=== PATIENT | female | born 1985 | race Caucasian/White ===

== ENCOUNTER 2017-01-02 05:40 | Inpatient (IN) | payer OTHER ==
[~2017-01-02] VITALS: Ht 162.6 cm; Wt 92.5 kg
[2017-01-02] MEDS ORDERED: PREN1TAB80 PO (06:09)
[2017-01-02] MEDS ORDERED: RINGERS SOLUTION,LACTATED 1,000 ML IV PRN (06:29)
[2017-01-02] MEDS ORDERED: OXYTOCIN 30 UNITS/LACT RINGERS 500 ML IV ONE (06:29)
[2017-01-02] MEDS ORDERED: FentaNYL CITRATE-PF 100 MCG/2 ML VIAL IVP PRN (06:30)
[2017-01-02] MEDS ORDERED: METOCLOPRAMIDE HCL 5 MG/ML 2 ML VIAL IVP PRN (06:30)
[2017-01-02] MEDS ORDERED: CITRIC ACID/SODIUM CITRATE 30 ML SOLUTION UDCUP PO PRN (06:30)
[2017-01-02] MEDS ORDERED: MAGNESIUM SULFATE 500 ML IV SCH (06:37)
[2017-01-02] MEDS ORDERED: AZITHROMYCIN 500 MG/NS 250 ML IV ONE (06:45)
[2017-01-02] MEDS ORDERED: MAGNESIUM SULFATE 4 GM/WATER 100 ML IV ONE (06:45)
[2017-01-02] MEDS ORDERED: AMPICILLIN SODIUM 2 GM/NS 100 ML IV ONE (06:45)
[2017-01-02] MEDS ORDERED: BETAMETHASONE SOLUSPAN 6 MG/ML 5 ML VIAL IM ONE ×2 (06:45→19:30)
[2017-01-02] MEDS ORDERED: CALCIUM GLUCONATE 100 MG/ML 10 ML IVP PRN (06:45)
[2017-01-02 06:58] VITALS: BP 119/62
[2017-01-02 07:01] LABS: BASOPHILS # (AUTO) 0.05 K/uL (0.00-0.20); BASOPHILS % (AUTO) 0.5 % (0.0-2.0); EOSINOPHILS # (AUTO) 0.02 K/uL (0.00-0.70); EOSINOPHILS % (AUTO) 0.19 % (1.0-6.0); HEMATOCRIT 33.2 % (36-46); HEMOGLOBIN 11.6 g/dL (12.0-16.0); LYMPHOCYTES # (AUTO) 2.1 K/uL (1.0-4.8); LYMPHOCYTES % (AUTO) 23.1 % (22.0-44.0); MEAN CORPUSCULAR HEMOGLOBIN 31.6 pg (26.0-34.0); MEAN CORPUSCULAR VOLUME 90 fL (80-100); MONOCYTES # (AUTO) 0.5 K/uL (0.1-1.0); MONOCYTES % (AUTO) 5.9 % (2.0-9.0); NEUTROPHILS # (AUTO) 6.5 K/uL (1.8-7.7); NEUTROPHILS % (AUTO) 70.4 % (40.0-70.0); RED BLOOD CELL COUNT(AUTO) 3.68 MIL/uL (4.00-5.20); RED CELL DISTRIBUTION WIDTH 13.2 % (11.5-14.5); WHITE BLOOD COUNT (AUTO) 9.3 K/uL (4.5-11.0)
[2017-01-02] MEDS: RINGERS SOLUTION,LACTATED 1,000 ML IV SCH ×2 (07:35→17:24)
[2017-01-02] MEDS: AMPICILLIN SODIUM 1 GM/NS 50 ML IV SCH ×3 (11:25→19:56)
[2017-01-02] MEDS ORDERED: ACETAMINOPHEN 325 MG TABLET PO ONE (15:15)
[2017-01-02] MEDS ORDERED: INFLUENZA VIRUS VACCINE QVS 2016-17 (3YR+)/PF 60 MCG/0.5 ML SYRINGE IM ONE (16:00)
[2017-01-02] MEDS ORDERED: OXYTOCIN 30 UNITS/LACT RINGERS 500 ML IV PRN (19:02)
[2017-01-03] MEDS: AMPICILLIN SODIUM 1 GM/NS 50 ML IV SCH ×5 (00:06→16:10)
[2017-01-03] MEDS ORDERED: FentaNYL/BUPIV 0.125%/NS/PF 200 ML ED ONE ×2 (00:47→14:56)
[2017-01-03] MEDS ORDERED: LIDOCAINE HCL 2%/EPI 1:200,000/PF 10 ML VIAL ONE (00:48)
[2017-01-03] MEDS: RINGERS SOLUTION,LACTATED 1,000 ML IV SCH ×3 (00:49→14:38)
[2017-01-03] MEDS ORDERED: NALBUPHINE HCL 10 MG/ML VIAL IVP PRN (01:30)
[2017-01-03] MEDS ORDERED: ONDANSETRON HCL 4 MG/2 ML VIAL IVP PRN (01:30)
[2017-01-03] MEDS ORDERED: AZITHROMYCIN 250 MG in SODIUM CHLORIDE 0.9% 150 ML IV SCH (06:45)
[2017-01-03] MEDS ORDERED: BUPIVACAINE HCL/PF 0.25% 10 ML VIAL ONE (14:55)
[2017-01-03] MEDS ORDERED: LANOLIN 7 GM OINTMENT TP PRN (20:00)
[2017-01-03] MEDS ORDERED: GLYCERIN/WITCH HAZEL LEAF 40 PADS JAR TP PRN (20:00)
[2017-01-03] MEDS ORDERED: BENZOCAINE 20%/MENTHOL 56 GM SPRAY CANISTER TP PRN (20:00)
[2017-01-03] MEDS ORDERED: MEASLES/MUMPS/RUBELLA VACCINE, LIVE 0.5 ML/VIAL SQ ONE (20:00)
[2017-01-03] MEDS ORDERED: MAGNESIUM HYDROXIDE SUSPENSION 30 ML UDCUP PO PRN (20:00)
[2017-01-03] MEDS ORDERED: ACETAMINOPHEN/CODEINE 300-30 MG TABLET PO PRN (20:00)
[2017-01-03] MEDS ORDERED: SENNA/DOCUSATE SODIUM 187-50 MG TABLET PO PRN (20:00)
[2017-01-04] MEDS: IBUPROFEN 600 MG TABLET PO PRN ×2 (01:55→10:56)
[2017-01-04] MEDS ORDERED: IBUP-2070 PO (18:11)
[2017-01-04] MEDS ORDERED: DSS100 PO (18:11)
== END 2017-01-04 18:30 | disposition home or self-care (01) | DRG 775 ==
LOC: OBSVTOIN 05:40 → 4S 05:40
PROVIDERS: ADMIT Obstetrics & Gynecology; ATTEND Obstetrics & Gynecology
PROC: 10E0XZZ Delivery of Products of Conception, External Approach (ICD-10-PCS; principal; 2017-01-02)
PROC: 0KQM0ZZ Repair Perineum Muscle, Open Approach (ICD-10-PCS; 2017-01-02)
PROC: 3E0S3CZ (ICD-10-PCS; 2017-01-02)
PROC: 00HU33Z Insertion of Infusion Device into Spinal Canal, Percutaneous Approach (ICD-10-PCS; 2017-01-02)
DX: O60.14X0 Preterm labor third trimester with preterm delivery third trimester, not applicable or unspecified (principal); Z3A.35 35 weeks gestation of pregnancy; Z37.0 Single live birth; O71.82 Other specified trauma to perineum and vulva
CPT/HCPCS: 76805; 83735; 86850; 86900; 86901; 89060; J0290; J0456; J0702; J2590; J3475; J3490; J7050; J7120